=== PATIENT | female | born 1950 | race Caucasian/White ===

== ENCOUNTER 2021-10-09 08:06 | Day surgery (SDC) | payer MEDICARE, SELFPAY ==
[2021-09-19 14:43] VITALS: BMI 26.5
--- NOTE | 2021-10-05 08:33 | MHC.SHP ---
Pre-Procedural Eval Section A Date of Service: 10/05/21 The patient is an INPATIENT: No Changes since office visit: No Cold of Flu in the past 2 weeks, No New Medical Problems, No Changes in Medication and No Patient answered all questions The History & Physical has been completed within 30 days and I have reviewed it.: Yes Section B Chief Complaint: Left eye cataract Allergies: Allergies Allergy/AdvReac Type Severity Reaction Status Date / Time No Known Allergies Allergy Verified 09/19/21 14:37 Plan Diagnosis/Plan: Unchanged I have reviewed the history and physical and performed a pertinent physical examination on my patient. No changes have occurred unless specified.
--- NOTE | 2021-10-06 09:26 | HO.ANESPROP2 ---
Documented by User: Ember Krishnamurthy NP 10/06/21 09:27 HPI - Anesthesia Eval Consult details Narrative: 71yo F for Left Cataract Extraction IOL Insertion PCP cleared No previous cataract on record [facility] Past Medical History Medical History (Updated 09/19/21 @ 14:34 by Rosie Castano RN) Arthritis COVID-19 vaccine series completed Elevated cholesterol Osteoporosis Surgical History Surgical History (Updated 09/19/21 @ 14:34 by Rosie Castano RN) H/O colonoscopy History of open reduction and internal fixation (ORIF) procedure Hx of melanoma excision Social History Social History Are you a primary animal care assistant to a significant other at home: No Do you presently have visiting nurse or other home services: No Patient Tobacco Use Status: Never used Tobacco Use of substances other than those prescribed or required for medical reasons: No Have you been hit, kicked, punched, or otherwise hurt by someone within the past year? If so, by whom?: No Are you DNR?: No Advance Directives: No Advance Directives Information Provided: Yes Advance Directives on File: No Recently lost weight without trying: No Nutrition Risks: No Nutritional Risk Poor oral hygiene: No Meds Allergies Allergy/AdvReac Type Severity Reaction Status Date / Time No Known Allergies Allergy Verified 09/19/21 14:37 Home Medications Medication Instructions Recorded Confirmed Last Taken Type atorvastatin 10 mg tablet 1 tab PO BEDTIME 09/19/21 09/19/21 Unknown History calcium carbonate 300 mg (750 mg) 300 mg PO DAILY 09/19/21 09/19/21 Unknown History chewable tablet cholecalciferol (vitamin D3) 25 25 mcg PO DAILY 09/19/21 09/19/21 Unknown History mcg (1,000 unit) capsule (Vitamin D3) ibandronate 150 mg tablet 1 tab PO QMONTH 09/19/21 09/19/21 Unknown History Exam Exam Date and Time: October 06, 2021 0926 Height,Weight and Vital Signs: Height 5 ft 2 in Weight 65.771 kg Assessment and Plan Assessment Anesthesia Assessment: Chart Reviewed Documented by User: Clive Polanco MD 10/09/21 09:01 [facility] Past Medical History Medical History (Updated 09/19/21 @ 14:34 by Rosie Castano RN) Arthritis COVID-19 vaccine series completed Elevated cholesterol Osteoporosis Family History Family history of problems with anesthesia: No Surgical History Surgical History (Updated 09/19/21 @ 14:34 by Rosie Castano RN) H/O colonoscopy History of open reduction and internal fixation (ORIF) procedure Hx of melanoma excision History of Problems with Anesthesia: No Social History Social History Are you a primary animal care assistant to a significant other at home: No Do you presently have visiting nurse or other home services: No Patient Tobacco Use Status: Never used Tobacco Use of substances other than those prescribed or required for medical reasons: No Have you been hit, kicked, punched, or otherwise hurt by someone within the past year? If so, by whom?: No Are you DNR?: No Advance Directives: No Advance Directives Information Provided: Yes Advance Directives on File: No Recently lost weight without trying: No Nutrition Risks: No Nutritional Risk Poor oral hygiene: No Meds Allergies Allergy/AdvReac Type Severity Reaction Status Date / Time No Known Allergies Allergy Verified 09/19/21 14:37 Home Medications Medication Instructions Recorded Confirmed Last Taken Type atorvastatin 10 mg tablet 1 tab PO BEDTIME 09/19/21 09/19/21 Unknown History calcium carbonate 300 mg (750 mg) 300 mg PO DAILY 09/19/21 09/19/21 Unknown History chewable tablet cholecalciferol (vitamin D3) 25 25 mcg PO DAILY 09/19/21 09/19/21 Unknown History mcg (1,000 unit) capsule (Vitamin D3) ibandronate 150 mg tablet 1 tab PO QMONTH 09/19/21 09/19/21 Unknown History Exam Airway Mallampati Class: II TM Dist: >3cm Neck ROM: Full Loose/Missing/Broken Teeth: No Heart: [id number] Lungs: cta b/l Assessment and Plan Assessment Anesthesia Assessment: Anesthesia Plan Discussed Final Anesthetic Review Family History of Problems with Anesthesia: No History of Problems with Anesthesia: No NPO: Yes ASA Class: II Final Preanesthetic Review: No Changes in Pt Med Stat, Meds/Allgs Chart Reviewed, Consent Obtained/Reviewed and Anes Risks/Benef Reviewed Patient Risk: Low Procedure Risk: Low Assessment/Block/Sedation in SS: Assess/Block/Sedation-SS Anesthetic Plan Anesthetic Plan: MAC: and Agree w/ Assess. and Plan Disposition: Standard PACU
[2021-10-09 08:50] VITALS: BP 131/64; PULSE 69; RESP 16; TEMP 36.6; O2SAT 98
[2021-10-09] MEDS: Tetracaine HCl/PF 0.5% Oph Sol 4 ML DROPS 1 DROP EYE-LEFT (09:01)
[2021-10-09] MEDS: Tropicamide 1 % Ophth Sol 3 ML BTL 1 DROP EYE-LEFT ×3 (09:03→09:11)
[2021-10-09] MEDS: Lactated Ringers 500 ML 50 ML IV (09:03)
[2021-10-09] MEDS: Phenylephrine HCL 2.5% Oph SoL 2 ML BOTTLE 1 DROP EYE-LEFT ×3 (09:06→09:13)
--- NOTE | 2021-10-09 09:56 | HO.PNOPHT ---
Ophthalmology Procedure Procedure Date of Service: 10/09/21 Ophthalmology Viscoelastic: Healon Duet Dual Pack Pro Ophthalmology Lenses: PCBOO 33 Procedure Notes: PREOPERATIVE DIAGNOSIS: Decreased visual acuity left eye secondary to cataract POSTOPERATIVE DIAGNOSIS: Same PROCEDURE: Left cataract extraction with intraocular lens insertion SURGEON: Flo Sheehan M.D. ANESTHESIA: Topical/MAC ESTIMATED BLOOD LOSS: None COMPLICATIONS: None After obtaining informed consent, the patient was brought to the operation room suite and placed in the supine position. After adequate sedation per anesthesia, topical drops of Tetracaine were given to the left eye. The eye was then prepped and draped in the usual sterile fashion. The operating room microscope was then positioned over the operative eye and a lid speculum placed. A paracentesis was created. Viscoelastic was then instilled into the anterior chamber. A three plane incision was then created temporally, utilizing a 2.85 mm keratome. Capsulotomy forceps were then utilized to create a circular tear capsulotomy. Hydrodissection and hydrodelineation were carried out until adequate mobilization of the nucleus occurred. Phacoemulsification was then utilized to remove the dense central nucleus followed by removal of the cortical material utilizing the automated aspiration irrigation unit. Viscoat elastic was instilled into the posterior capsular bag followed by placement of a posterior chamber intraocular lens without difficulty. The residual Viscoat elastic was then removed utilizing the automated IA machine. The wound was check and found to be watertight. The patient tolerated the procedure well and the lid speculum was removed. Intracameral injection of Vigamox 0.1 mL followed by a subtenon injection of Kenalog-40 0.2 mL were administered. The patient will be seen in the a.m.
[2021-10-09 10:20] VITALS: BP 106/70; PULSE 68; RESP 16; TEMP 36.6; O2SAT 96
== END 2021-10-09 10:31 ==
LOC: HO.SSS 08:07
PROVIDERS: PCP Hospitalist; Visit Provider Ophthalmology
PROC: (CPT 66985; principal; 2021-10-09 10:50)
DX: H25.12 Age-related nuclear cataract, left eye (principal); H54.7 Unspecified visual loss; E78.5 Hyperlipidemia, unspecified; M81.0 Age-related osteoporosis without current pathological fracture; Z85.820 Personal history of malignant melanoma of skin; Z79.899 Other long term (current) drug therapy
CPT/HCPCS: 66984; J2250; J3010; J3300; V2632

== ENCOUNTER 2021-10-16 07:34 | Day surgery (SDC) | payer MEDICARE, SELFPAY ==
[2021-09-19 14:37] VITALS: BMI 26.5
--- NOTE | 2021-09-21 10:25 | MHC.SHP ---
Pre-Procedural Eval Section A Date of Service: 09/21/21 The patient is an INPATIENT: No Changes since office visit: No Cold of Flu in the past 2 weeks, No New Medical Problems, No Changes in Medication and No Patient answered all questions The History & Physical has been completed within 30 days and I have reviewed it.: Yes Section B Chief Complaint: Right eye Cataract Allergies: Allergies Allergy/AdvReac Type Severity Reaction Status Date / Time No Known Allergies Allergy Verified 09/19/21 14:37 Plan Diagnosis/Plan: Unchanged I have reviewed the history and physical and performed a pertinent physical examination on my patient. No changes have occurred unless specified.
--- NOTE | 2021-10-12 08:39 | MHC.SHP ---
Pre-Procedural Eval Section A Date of Service: 10/12/21 The patient is an INPATIENT: No Changes since office visit: No Cold of Flu in the past 2 weeks, No New Medical Problems, No Changes in Medication and No Patient answered all questions The History & Physical has been completed within 30 days and I have reviewed it.: Yes Section B Chief Complaint: Right eye Cataract Allergies: Allergies Allergy/AdvReac Type Severity Reaction Status Date / Time No Known Allergies Allergy Verified 09/19/21 14:37 Plan Diagnosis/Plan: Unchanged I have reviewed the history and physical and performed a pertinent physical examination on my patient. No changes have occurred unless specified.
--- NOTE | 2021-10-12 13:02 | HO.ANESPROP2 ---
Documented by User: Ember Krishnamurthy NP 10/12/21 13:18 HPI - Anesthesia Eval Consult details Narrative: 71yo F for Right Cataract Extraction IOL Insertion PCP cleared Left eye 10/09/21 with MAC: Fent 50, Midaz 2 PMFSH Past Medical History Medical History (Updated 09/19/21 @ 14:34 by Rosie Castano RN) Arthritis COVID-19 vaccine series completed Elevated cholesterol Osteoporosis Family History Family history of problems with anesthesia: No Surgical History Surgical History (Updated 09/19/21 @ 14:34 by Rosie Castano RN) H/O colonoscopy History of open reduction and internal fixation (ORIF) procedure Hx of melanoma excision History of Problems with Anesthesia: No Social History Social History Are you a primary nursing care partner to a significant other at home: No Do you presently have visiting nurse or other home services: No Patient Tobacco Use Status: Never used Tobacco Use of substances other than those prescribed or required for medical reasons: No Have you been hit, kicked, punched, or otherwise hurt by someone within the past year? If so, by whom?: No Are you DNR?: No Advance Directives Information Provided: Yes (as above noted-will bring HCP copy DOS) Advance Directives on File: No Recently lost weight without trying: No Eating poorly because of decreased appetite: No Nutrition Risks: No Nutritional Risk Poor oral hygiene: No Meds Allergies Allergy/AdvReac Type Severity Reaction Status Date / Time No Known Allergies Allergy Verified 10/16/21 08:55 Home Medications Medication Instructions Recorded Confirmed Last Taken Type atorvastatin 10 mg tablet 1 tab PO BEDTIME 09/19/21 09/19/21 Unknown History calcium carbonate 300 mg (750 mg) 300 mg PO DAILY 09/19/21 09/19/21 Unknown History chewable tablet cholecalciferol (vitamin D3) 25 25 mcg PO DAILY 09/19/21 09/19/21 Unknown History mcg (1,000 unit) capsule (Vitamin D3) ibandronate 150 mg tablet 1 tab PO QMONTH 09/19/21 09/19/21 Unknown History Exam Exam Date and Time: October 12, 2021 1302 Height,Weight and Vital Signs: Height 5 ft 2 in Weight 65.771 kg Assessment and Plan Assessment Anesthesia Assessment: Chart Reviewed Final Anesthetic Review Family History of Problems with Anesthesia: No History of Problems with Anesthesia: No Documented by User: Keiko Benz MD 10/16/21 09:07 PMFSH Past Medical History Medical History (Updated 09/19/21 @ 14:34 by Rosie Castano RN) Arthritis COVID-19 vaccine series completed Elevated cholesterol Osteoporosis Surgical History Surgical History (Updated 09/19/21 @ 14:34 by Rosie Castano RN) H/O colonoscopy History of open reduction and internal fixation (ORIF) procedure Hx of melanoma excision Social History Social History Are you a primary nursing care partner to a significant other at home: No Do you presently have visiting nurse or other home services: No Patient Tobacco Use Status: Never used Tobacco Use of substances other than those prescribed or required for medical reasons: No Have you been hit, kicked, punched, or otherwise hurt by someone within the past year? If so, by whom?: No Are you DNR?: No Advance Directives Information Provided: Yes (as above noted-will bring HCP copy DOS) Advance Directives on File: No Recently lost weight without trying: No Eating poorly because of decreased appetite: No Nutrition Risks: No Nutritional Risk Poor oral hygiene: No Meds Allergies Allergy/AdvReac Type Severity Reaction Status Date / Time No Known Allergies Allergy Verified 10/16/21 08:55 Home Medications Medication Instructions Recorded Confirmed Last Taken Type atorvastatin 10 mg tablet 1 tab PO BEDTIME 09/19/21 09/19/21 Unknown History calcium carbonate 300 mg (750 mg) 300 mg PO DAILY 09/19/21 09/19/21 Unknown History chewable tablet cholecalciferol (vitamin D3) 25 25 mcg PO DAILY 09/19/21 09/19/21 Unknown History mcg (1,000 unit) capsule (Vitamin D3) ibandronate 150 mg tablet 1 tab PO QMONTH 09/19/21 09/19/21 Unknown History Exam Airway Mallampati Class: II TM Dist: >3cm Neck ROM: Full Assessment and Plan Assessment Anesthesia Assessment: Anesthesia Plan Discussed Final Anesthetic Review NPO: Yes ASA Class: II Final Preanesthetic Review: No Changes in Pt Med Stat, Meds/Allgs Chart Reviewed, Consent Obtained/Reviewed and Anes Risks/Benef Reviewed Patient Risk: Low Procedure Risk: Low Anesthetic Plan Anesthetic Plan: MAC: Disposition: Standard PACU
--- NOTE | 2021-10-13 11:10 | MHC.SHP ---
Pre-Procedural Eval Section A Date of Service: 10/25/21 Section B Chief Complaint: Right eye Cataract Details of Present Illness: Vision changes Relevant Family History (Specify if Yes): No Relevant Social History: None Present Medications: see Short Stay Collaborative assessment Medical History: Significant History (See Anesthesia Preop Consult) History of Previous Operations: Relevant previous surgery/procedure and date(s) (Left eye 10/09/21 with MAC: Fent 50, Midaz 2) Allergies: Allergies Allergy/AdvReac Type Severity Reaction Status Date / Time No Known Allergies Allergy Verified 09/19/21 14:37 Plan I have reviewed the history and physical and performed a pertinent physical examination on my patient. No changes have occurred unless specified.
[2021-10-16 08:52] VITALS: BP 105/72; PULSE 70; RESP 16; TEMP 36.1; O2SAT 98
[2021-10-16] MEDS: Lactated Ringers 500 ML 50 ML IV (09:01)
[2021-10-16] MEDS: Tetracaine HCl/PF 0.5% Oph Sol 4 ML DROPS 1 DROP EYE-RIGHT (09:02)
[2021-10-16] MEDS: Tropicamide 1 % Ophth Sol 3 ML BTL 1 DROP EYE-RIGHT ×3 (09:03→09:15)
[2021-10-16] MEDS: Phenylephrine HCL 2.5% Oph SoL 2 ML BOTTLE 1 DROP EYE-RIGHT ×3 (09:07→09:19)
--- NOTE | 2021-10-16 09:44 | HO.PNOPHT ---
Ophthalmology Procedure Procedure Date of Service: 10/16/21 Ophthalmology Viscoelastic: Ryan Dalton Dual Pack Pro Ophthalmology Lenses: PCBOO 31.5 Procedure Notes: PREOPERATIVE DIAGNOSIS: Decreased visual acuity right eye secondary to cataract POSTOPERATIVE DIAGNOSIS: Same PROCEDURE: Right cataract extraction with intraocular lens insertion SURGEON: Flo Sheehan M.D. ANESTHESIA: Topical/MAC ESTIMATED BLOOD LOSS: None COMPLICATIONS: None After obtaining informed consent, the patient was brought to the operating room suite and placed in the supine position. After adequate sedation per anesthesia, topical drops of Tetracaine were given to the right eye. The eye was then prepped and draped in the usual sterile fashion. The operating room microscope was then positioned over the operative eye and a lid speculum placed. A paracentesis was created. Viscoelastic was then instilled into the anterior chamber. A three plane incision was then created temporally, utilizing a 2.85 mm keratome. Capsulotomy forceps were then utilized to create a circular tear capsulotomy. Hydrodissection and hydrodelineation were carried out until adequate mobilization of the nucleus occurred. Phacoemulsification was then utilized to remove the dense central nucleus followed by removal of the cortical material utilizing the automated aspiration irrigation unit. Viscoelastic was instilled into the posterior capsular bag followed by placement of a posterior chamber intraocular lens without difficulty. The residual Viscoelastic was then removed utilizing the automated IA machine. The wound was checked and found to be watertight. The patient tolerated the procedure well and the lid speculum was removed. Intracameral injection of Vigamox 0.1 mL followed by a subtenon injection of Kenalog-40 0.2 mL were administered. The patient will be seen in the a.m.
[2021-10-16 10:09] VITALS: BP 138/76; PULSE 74; RESP 16; TEMP 36.6; O2SAT 99
== END 2021-10-16 10:22 | disposition home or self-care (01) ==
PROVIDERS: PCP Hospitalist; Visit Provider Ophthalmology
PROC: (CPT 66985; principal; 2021-10-16 09:50)
DX: H25.11 Age-related nuclear cataract, right eye (principal); H18.503 Unspecified hereditary corneal dystrophies, bilateral; M81.0 Age-related osteoporosis without current pathological fracture; E78.00 Pure hypercholesterolemia, unspecified; Z85.820 Personal history of malignant melanoma of skin; Z79.899 Other long term (current) drug therapy
CPT/HCPCS: 66984; J2250; J3300; V2630